=== PATIENT | male | born 1995 | race Hispanic/Latino ===

== ENCOUNTER 2017-10-08 08:55 | Day surgery (SDC) | payer OTHER ==
[~2017-10-08] VITALS: Ht 162.6 cm; Wt 63.5 kg
[2017-10-08] MEDS ORDERED: LR 1,000 ML IV ONE (09:15)
[2017-10-08] MEDS ORDERED: LIDOCAINE 1% MDV 20ML VIAL As Ordered ONE (11:51)
[2017-10-08] MEDS ORDERED: BUPIVACAINE HCL 0.25% 10 ML VIAL As Ordered ONE (11:51)
[2017-10-08] MEDS ORDERED: METOCLOPRAMIDE INJ 10MG/2ML VIAL (J2765) As Ordered ONE (11:59)
[2017-10-08] MEDS ORDERED: PROPOFOL 200 MG/20 ML VIAL As Ordered ONE (11:59)
[2017-10-08] MEDS ORDERED: fentaNYL 100 MCG/2 ML INJECTION (J3010) As Ordered ONE (11:59)
[2017-10-08] MEDS ORDERED: LIDOCAINE 2% INJ 100 MG/5 ML SDV (FOR ANES.) As Ordered ONE (11:59)
[2017-10-08] MEDS ORDERED: MIDAZOLAM INJ 2 MG/2 ML VIAL (J2250) As Ordered ONE (11:59)
[2017-10-08] MEDS ORDERED: dexameTHASONE 4 MG/ML 1ML VIAL (J1100) As Ordered ONE (12:16)
--- NOTE | 2017-10-08 13:22 | ROOPDOC ---
[facility] Report Of Operation Report of Operation DATE OF PROCEDURE: 10/08/17 PREPROCEDURE DIAGNOSES: [Tonsillar hypertrophy, sleep apnea, and left buccal mucocele]. POSTPROCEDURE DIAGNOSES: [Same]. PROCEDURE: [Tonsillectomy and excision of left buccal mucocele]. SURGEON: [Samson Hendrix, LEAD PROJECT ENGINEER: , ANESTHESIA: [Gen. via endotracheal tube]. ESTIMATED BLOOD LOSS: Approximately [20 ] mL. COMPLICATIONS: [None]. REMARKS: [Enlarged tonsils.]. PROCEDURE NOTE: [With the patient in supine position, the patient was prepped and draped in the usual fashion, after intubation by the electroplating sales representative. The Anthony mouth gag was placed and a grooved tongue blade was utilized. A red rubber Elizondo was brought out through the nasal cavity and oral cavity for soft palate retraction. Left tonsil was grabbed with a curved Allis clamp and was medialized. It was dissected out with the Coblation, [id number] wand. The left tonsil was removed in the right tonsil was also removed in a similar fashion. Settings were 7 and Coblator 3 coag. After removal the left buccal mucosa lesion was identified and it was removed utilizing tenotomy scissors and coag as necessary. It was closed with 3.0 chromic interrupted sutures. 3 sutures. Tonsils were injected with a total of 1-1/2 mL of 1% lidocaine with 0.5% bupivacaine into each tonsillar fossa for postop control. Tonsils were irritated and Valsalva's were performed and no further bleeding, even after retraction was released and reevaluated. Estimated blood loss was 20 mL DESCRIPTION OF PROCEDURE: [Tonsillectomy and removal of left buccal mucocele]. SAMSON HATCH MD Oct 08, 2017 13:22
[2017-10-08] MEDS ORDERED: fentaNYL 100 MCG/2 ML INJECTION (J3010) IV PRN (13:30)
[2017-10-08] MEDS ORDERED: ONDANSETRON 4MG/2ML VIAL (J2405) IV PRN (13:30)
[2017-10-08] MEDS ORDERED: LR 1,000 ML IV SCH (13:30)
[2017-10-08 15:00] VITALS: BP 128/79
== END 2017-10-08 15:08 | disposition home or self-care (01) ==
LOC: M SDC 08:55
PROVIDERS: ATTEND Otolaryngology
DX: J35.1 Hypertrophy of tonsils (principal); J35.01 Chronic tonsillitis; G47.33 Obstructive sleep apnea (adult) (pediatric); K13.79 Other lesions of oral mucosa; R06.83 Snoring; J30.9 Allergic rhinitis, unspecified; J34.3 Hypertrophy of nasal turbinates; J32.9 Chronic sinusitis, unspecified
CPT/HCPCS: 40810; 42826; 88302; 88304; J1100; J2250; J2765; J3010

== ENCOUNTER → 2020-05-03 | Outpatient (REF) | payer OTHER ==
[2020-05-03 18:12] LABS: CHLAMYDIA DNA AMPLIFICATION NEGATIVE (NEGATIVE); GC DNA AMPLIFICATION NEGATIVE (NEGATIVE)
== END ==
LOC: M WUC 15:53
PROVIDERS: ATTEND Nurse Practitioner Family
DX: Z20.2 Contact with and (suspected) exposure to infections with a predominantly sexual mode of transmission (principal)